=== PATIENT | male | born 1995 | race Two or more races ===

== ENCOUNTER 2020-08-05 16:51 | Outpatient (REF) | payer OTHER, SELFPAY ==
[2020-08-19 14:48] LABS: Chlamydia Source URETHRAL
== END 2020-08-05 16:52 | disposition home or self-care (01) ==
LOC: HO.LNP 16:51
PROVIDERS: Visit Provider Internal Medicine Medical Oncology
DX: Z13.89 Encounter for screening for other disorder (principal)

== ENCOUNTER 2020-08-07 09:23 | Outpatient (REF) | payer OTHER, SELFPAY ==
[2020-08-07 10:11] LABS: MANUAL DIFF FLAG NO
[2020-08-07 10:23] LABS: Basophils Percent Auto 0.5 % (0-2); Eosinophils Absolute Auto 0.1 X10*3/uL (0.0-0.4); Eosinophils Percent Auto 1.9 % (0-4); Hematocrit 45.1 % (42-52); Imm Gran Abs Auto 0.01 X10*3/uL (0.00-0.03); Imm Gran Pct Auto 0.2 % (0.0-0.4); Lymphocytes Absolute Auto 1.9 X10*3/uL (1.2-4.9); Lymphocytes Percent Auto 43.6 % (20-40); Mean Corpuscular HGB Conc 33.3 g/dl (31.0-36.0); Mean Corpuscular Hemoglobin 28.8 pg (27.0-33.0); Mean Corpuscular Volume 86.7 fL (80-98); Mean Platelet Volume 8.3 fL (9.4-12.4); Monocytes Absolute Auto 0.3 X10*3/uL (0.1-1.2); Monocytes Percent Auto 6.8 % (2-11); Platelet Count 353 X10*3/uL (160-400); White Blood Count 4.3 X10*3/uL (4.8-10.8)
[2020-08-07 10:40] LABS: Alanine Aminotransferase 24 U/L (0-40); Albumin Level 4.8 g/dL (3.5-5.0); Alkaline Phosphatase 66 U/L (39-117); Anion Gap 12 (12-20); Aspartate Amino Transferase 21 U/L (5-37); Bilirubin Total 0.8 mg/dL (0.0-1.0); Blood Urea Nitrogen 13 mg/dL (9-16); Calcium 9.9 mg/dL (8.4-10.2); Carbon Dioxide 30 mmol/L (22-29); Chloride 102 mmol/L (96-108); Cholesterol 166 mg/dL; Estimated Glomerular Filt Rate > 60; Glucose Random 83 mg/dL (60-115); HDL Cholesterol 52 mg/dL; LDL Cholesterol Calculated 101 mg/dl; Potassium 4.7 mmol/l (3.3-5.1); Sodium 139 mmol/L (135-145); Total Protein 7.7 g/dL (6.5-8.0); Triglycerides 67 mg/dL
[2020-08-07 10:51] LABS: HIV AB/AG Nonreactive (Nonreactive); HIV Num 1 0.19 S/CO (0.00-0.99)
[2020-08-08 20:12] LABS: Herpes Simplex Type 2 IgG >23.00 index
== END 2020-08-07 09:24 | disposition home or self-care (01) ==
LOC: HO.LAB 09:23
PROVIDERS: PCP Internal Medicine Medical Oncology; Visit Provider Internal Medicine Medical Oncology
DX: I49.3 Ventricular premature depolarization (principal); R00.2 Palpitations; Z20.2 Contact with and (suspected) exposure to infections with a predominantly sexual mode of transmission
CPT/HCPCS: 36415; 80053; 80061; 85025; 86695; 86696; 87389

== ENCOUNTER 2022-08-08 18:29 | Emergency (ER) | payer SELFPAY ==
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
[2022-08-08 18:39] VITALS: BP 120/74; PULSE 68; RESP 18; TEMP 36.6; O2SAT 98; BMI 25.0
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
== END 2022-08-08 20:07 | disposition home or self-care (01) ==
PROVIDERS: Emergency Provider Internal Medicine; PCP Internal Medicine Medical Oncology
DX: Z04.1 Encounter for examination and observation following transport accident (principal); R51.9 Headache, unspecified; M79.632 Pain in left forearm; M54.2 Cervicalgia
CPT/HCPCS: 70450; 72125; 73090; 99282; 99284

== ENCOUNTER 2023-11-29 14:08 | Outpatient (REF) | payer SELFPAY ==
[2023-11-29 15:51] LABS: CT PCR NOT DETECTED (Not Detect.); NG PCR NOT DETECTED (Not Detect.)
== END 2023-11-29 14:09 | disposition home or self-care (01) ==
LOC: HO.LNP 14:08
PROVIDERS: Visit Provider Internal Medicine Medical Oncology
DX: Z20.2 Contact with and (suspected) exposure to infections with a predominantly sexual mode of transmission (principal)
CPT/HCPCS: 0353U

== ENCOUNTER 2023-11-29 14:13 | Outpatient (REF) | payer SELFPAY ==
[2023-11-30 04:09] LABS: Syphilis Screen Nonreactive (Nonreactive)
[2023-11-30 04:18] LABS: HIV AB/AG Nonreactive (Nonreactive); HIV Num 1 0.05 S/CO (0.00-0.99)
== END 2023-11-29 14:14 | disposition home or self-care (01) ==
LOC: HO.LAB 14:13
PROVIDERS: PCP Internal Medicine Medical Oncology; Visit Provider Internal Medicine Medical Oncology
DX: Z11.4 Encounter for screening for human immunodeficiency virus [HIV] (principal); Z20.2 Contact with and (suspected) exposure to infections with a predominantly sexual mode of transmission
CPT/HCPCS: 86780; 87389